=== PATIENT | male | born 1940 | race Caucasian/White ===

== ENCOUNTER 2016-05-29 08:46 | Inpatient (IN) | payer OTHER, BC ==
[~2016-05-29] VITALS: Ht 177.8 cm; Wt 122.4 kg
[~2016-05-29 08:46] MED LIST: ALLOPURINOL300 MG PO; AMLODIPINE BESYL5 MG PO; CLEAR EYES ITCH15 ML BOTH EYES; FLOMAX0.4 MG PO; HYDROCHLOROTHIA25 MG PO; KEFLEX500 MG PO; KLOR-CON M2020 MEQ PO; METFORMIN HCL500 M1 PO; METFORMIN HCL500 MG PO; METOPROLOL SUC200 MG PO; PERCOCET 5/31 TABLET PO; PRINZIDE 20-121 EACH PO; PROTONIX40 MG PO; RESTASIS 01 DROP/0.4 BOTH EYES; ZOFRAN4 MG PO
[2016-05-29 09:23] VITALS: BP 156/91
[2016-05-29 09:51] LABS: POINT-OF-CARE METER ID UU14174212
[2016-05-29 13:19] LABS: POINT-OF-CARE METER ID UU13113675
[2016-05-29] MEDS ORDERED: ENDOCET 5-3251 EACH PO (13:28)
[2016-05-29] MEDS ORDERED: DOCUSATE SODIU100 MG PO (13:28)
[2016-05-29 14:45] VITALS: BP 137/65
[2016-05-29 15:39] LABS: ANION GAP 12 MEQ/L (2-14); CHLORIDE 106 MEQ/L (99-109); GFR ESTIMATE (CALCULATED) > 59 mL/min/; GLUCOSE 177 mg/dL (70-99); POTASSIUM 3.5 MEQ/L (3.7-5.4); SAMPLE HEMOLYSIS CHECK 0; SAMPLE ICTERIC CHECK 0; SAMPLE LIPEMIA CHECK 0; SODIUM 141 MEQ/L (136-147); UREA NITROGEN (BUN) 15 mg/dL (9-23)
[2016-05-29 20:14] VITALS: BP 139/68
[2016-05-29 22:40] VITALS: BP 139/70
[2016-05-30 02:58] VITALS: BP 141/74
[2016-05-30 07:15] LABS: ANION GAP 10 MEQ/L (2-14); CHLORIDE 103 MEQ/L (99-109); GFR ESTIMATE (CALCULATED) 42 mL/min/; POTASSIUM 3.9 MEQ/L (3.7-5.4); SAMPLE HEMOLYSIS CHECK 0; SAMPLE ICTERIC CHECK 0; SAMPLE LIPEMIA CHECK 0; SODIUM 141 MEQ/L (136-147); UREA NITROGEN (BUN) 17 mg/dL (9-23)
[2016-05-30 07:28] LABS: GLUCOSE 112 mg/dL (70-99)
[2016-05-30 08:02] LABS: HEMATOCRIT 40.8 % (38.0-50.0); MCHC 35.5 G/DL (30.0-36.0); MCV 87.4 FL (86-99); MEAN PLAT.VOLUME 11.3 uM^3 (9.0-12.4); PLATELET COUNT 140 K/uL (156-360); RBC DIS.WIDTH-CV 13.3 % (11.8-14.6); RBC DIS.WIDTH-SD 42.1 % (39-53); RED BLOOD COUNT 4.67 M/uL (4.00-5.50)
[2016-05-30 08:05] VITALS: BP 134/70
[2016-05-30 08:31] LABS: WHITE BLOOD COUNT 12.2 K/uL (4.1-10.2)
[2016-05-30 12:10] LABS: POINT-OF-CARE METER ID UU13113725
[2016-05-30 12:20] VITALS: BP 138/70
[2016-05-30 16:08] LABS: HEMATOCRIT 40.2 % (38.0-50.0); MCH 29.4 PG (29.0-34.0); MCHC 33.8 G/DL (30.0-36.0); MEAN PLAT.VOLUME 10.9 uM^3 (9.0-12.4); PLATELET COUNT 118 K/uL (156-360); RBC DIS.WIDTH-CV 13.3 % (11.8-14.6); RBC DIS.WIDTH-SD 42.4 % (39-53); RED BLOOD COUNT 4.62 M/uL (4.00-5.50); WHITE BLOOD COUNT 11.1 K/uL (4.1-10.2)
[2016-05-30 16:44] LABS: POINT-OF-CARE METER ID UU13113725
[2016-05-30 21:15] VITALS: BP 147/81
[2016-05-30 22:40] VITALS: BP 140/65
[2016-05-31 03:01] VITALS: BP 130/83
[2016-05-31 06:50] LABS: HEMATOCRIT 37.7 % (38.0-50.0); MCH 30.8 PG (29.0-34.0); MCHC 34.7 G/DL (30.0-36.0); MCV 88.5 FL (86-99); PLATELET COUNT 108 K/uL (156-360); RBC DIS.WIDTH-CV 13.3 % (11.8-14.6); RBC DIS.WIDTH-SD 42.8 % (39-53); RED BLOOD COUNT 4.26 M/uL (4.00-5.50); WHITE BLOOD COUNT 8.6 K/uL (4.1-10.2)
[2016-05-31 07:13] LABS: ANION GAP 8 MEQ/L (2-14); CHLORIDE 103 MEQ/L (99-109); GFR ESTIMATE (CALCULATED) 33 mL/min/; GLUCOSE 105 mg/dL (70-99); POTASSIUM 3.7 MEQ/L (3.7-5.4); SAMPLE HEMOLYSIS CHECK 0; SAMPLE ICTERIC CHECK 0; SAMPLE LIPEMIA CHECK 0; SODIUM 141 MEQ/L (136-147); UREA NITROGEN (BUN) 16 mg/dL (9-23)
[2016-05-31 07:46] VITALS: BP 141/73
[2016-05-31 12:24] VITALS: BP 166/81
[2016-05-31 16:56] LABS: POINT-OF-CARE METER ID UU13113725
[2016-05-31 19:46] VITALS: BP 161/85
[2016-05-31 21:03] LABS: POINT-OF-CARE METER ID UU13113725
[2016-05-31 23:28] VITALS: BP 160/76
[2016-06-01 02:57] LABS: UR CREATININE CONCENTRATION 35.5 MG/DL
[2016-06-01 03:45] VITALS: BP 143/73
[2016-06-01 06:26] LABS: POINT-OF-CARE METER ID UU13113725
[2016-06-01 06:49] LABS: EOSINOPHIL (%) 2.1 % (0-5); EOSINOPHIL COUNT 0.1 K/uL (0-0.3); HEMATOCRIT 36.8 % (38.0-50.0); IMMATURE GRANULOCYTE (%) 0.1 % (0.0-0.7); LYMPHOCYTE COUNT 0.7 K/uL (1.0-2.8); MCH 30.8 PG (29.0-34.0); MCHC 35.1 G/DL (30.0-36.0); MCV 87.8 FL (86-99); MEAN PLAT.VOLUME 10.8 uM^3 (9.0-12.4); MONOCYTE (%) 14.3 % (3-12); NEUTROPHIL (%) 72.5 % (45-76); NEUTROPHIL COUNT 4.9 K/uL (1.8-6.4); PLATELET COUNT 98 K/uL (156-360); RBC DIS.WIDTH-SD 41.7 % (39-53); RED BLOOD COUNT 4.19 M/uL (4.00-5.50); WHITE BLOOD COUNT 6.8 K/uL (4.1-10.2)
[2016-06-01 07:21] LABS: ANION GAP 7 MEQ/L (2-14); CHLORIDE 103 MEQ/L (99-109); GFR ESTIMATE (CALCULATED) 40 mL/min/; GLUCOSE 126 mg/dL (70-99); POTASSIUM 3.5 MEQ/L (3.7-5.4); SAMPLE HEMOLYSIS CHECK 0; SAMPLE ICTERIC CHECK 0; SAMPLE LIPEMIA CHECK 0; SODIUM 139 MEQ/L (136-147); UREA NITROGEN (BUN) 15 mg/dL (9-23)
[2016-06-01 07:30] VITALS: BP 138/78
[2016-06-01] MEDS ORDERED: LISINOPRIL10 MG PO (10:17)
[2016-06-01 11:32] VITALS: BP 157/80
[2016-06-01 11:36] LABS: POINT-OF-CARE METER ID UU13113725
== END 2016-06-01 14:59 | disposition home or self-care (01) | DRG 657 ==
LOC: 2SOUTH 08:46 → 5EAST 08:46 → 2SOUTH 12:39 → 5EAST 14:44
PROVIDERS: Internal Medicine Nephrology; Urology
DX: C64.1 Malignant neoplasm of right kidney, except renal pelvis (principal); N17.9 Acute kidney failure, unspecified; D69.6 Thrombocytopenia, unspecified; I12.9 Hypertensive chronic kidney disease with stage 1 through stage 4 chronic kidney disease, or unspecified chronic kidney disease; N18.3 Chronic kidney disease, stage 3 (moderate); E11.22 Type 2 diabetes mellitus with diabetic chronic kidney disease; Z79.84 Long term (current) use of oral hypoglycemic drugs; N28.1 Cyst of kidney, acquired; N20.0 Calculus of kidney; M10.9 Gout, unspecified; K21.9 Gastro-esophageal reflux disease without esophagitis; E66.9 Obesity, unspecified; Z68.38 Body mass index [BMI] 38.0-38.9, adult; E78.5 Hyperlipidemia, unspecified; G89.29 Other chronic pain; K44.9 Diaphragmatic hernia without obstruction or gangrene; Z96.651 Presence of right artificial knee joint
CPT/HCPCS: 76770; 80048; 82570; 82948; 84156; 85025; 85027; 88309; 94799; J0330; J0690; J1170; J1644; J1815; J2405; J2710; J3010; J7120